=== PATIENT | female | born 1945 | race Caucasian/White ===

== ENCOUNTER 2018-03-07 14:46 | Emergency (ER) | payer MEDICARE ==
[2018-03-07 15:04] LABS: URINE APPEARANCE CLEAR; URINE BILIRUBIN NEGATIVE (NEGATIVE); URINE BLOOD SMALL (NEGATIVE); URINE COLOR YELLOW; URINE GLUCOSE (UA) NEGATIVE (NEGATIVE); URINE KETONE NEGATIVE (NEGATIVE); URINE NITRITE NEGATIVE (NEGATIVE); URINE PROTEIN NEGATIVE (NEGATIVE); URINE UROBILINOGEN 0.2 E.U./dL (0.20 - 1.00)
[2018-03-07 15:09] LABS: URINE LEUKOCYTE ESTERASE TRACE (NEGATIVE); URINE WBC 0 - 2 (0-2/hpf)
--- NOTE | 2018-03-07 15:27 | Emergency Department Record ---
History of Present Illness - General Chief complaint: Female Urogenital Problem Stated complaint: POSS UTI Time Seen by Provider: 03/07/18 15:16 Source: Patient Mode of Arrival: Ambulatory Limitations: No limitations - History of Present Illness Initial comments: The patient is here due to a one day of slight dysuria. The patient denies any AP, nausea, vomiting, back pain or fever. She is presently on an oral Abx for a URI. MD Complaint: Dysuria Onset/Timin -: Days(s) Improves with: None Worsens with: None Associated Symptoms: Dysuria - Related Data Home Medications Medication Instructions Recorded Confirmed Last Taken Clarithromycin 500 mg PO BID 03/07/18 03/07/18 Unknown Lisinopril [Zestril] 5 mg PO DAILY 03/07/18 03/07/18 Unknown Omeprazole [Prilosec] 40 mg PO DAILY 03/07/18 03/07/18 Unknown Allergies Allergy/AdvReac Type Severity Reaction Status Date / Time hydrochlorothiazide AdvReac muscle Unverified 03/25/16 10:51 [facility] Travel Screening - Travel/Exposure Within Last 30 Days Have you traveled within the last 30 days?: No Review of Systems Constitutional: Reports: Malaise. Denies: Chills, Fever Eyes: Denies: Eye discharge ENT: Denies: Congestion Respiratory: Reports: Cough Past Medical History - SOCIAL HISTORY Smoking Status: Never smoker Alcohol Use: None Drug Use: None - RESPIRATORY Hx Respiratory Disorders: Yes Hx Asthma: Yes Hx Pneumonia: Yes (hx) - CARDIOVASCULAR Hx Cardio Disorders: Yes Hx Hypertension: Yes - NEURO Hx Neuro Disorders: No - GI Hx Reflux: Yes - Hx Genitourinary Disorders: No - ENDOCRINE Hx Endocrine Disorders: No - MUSCULOSKELETAL Hx Musculoskeletal Disorders: No - PSYCH Hx Psych Problems: No - HEMATOLOGY/ONCOLOGY Hx Hematology/Oncology Disorders: No Family Medical History Any Significant Family History?: Yes Hx Diabetes: Brother/Sister Hx Stroke: Brother/Sister Physical Exam - General General Appearance: Alert, Oriented x3, Cooperative, No acute distress - Head Head exam: Atraumatic, Normocephalic, Normal inspection - Eye Eye exam: Normal appearance, PERRL, EOMI - Neck Neck exam: Normal inspection, Full ROM. negative: Tenderness - Respiratory Respiratory exam: Normal lung sounds bilaterally. negative: Respiratory distress - Cardiovascular Cardiovascular Exam: Regular rate, Normal rhythm, Normal heart sounds - GI/Abdominal GI/Abdominal exam: Soft, Normal bowel sounds. negative: Rebound, Rigid, Tenderness - Extremities Extremities exam: Normal inspection, Full ROM, Normal capillary refill. negative: Tenderness - Neurological Neurological exam: Alert. negative: Motor sensory deficit Course Vital Signs 03/07/18 14:47 Temperature 98.1 F Pulse Rate 89 Respiratory 20 Rate Blood Pressure 147/91 Pulse Ox 96 - Reevaluation(s) Reevaluation #1: I explained to the patient that the UA does not demonstrate any infection but does have a few RBC's. She is to recheck with her PCP in 3-5 days and repeat the UA. 03/07/18 15:25 Medical Decision Making - Lab Data Lab Results 03/07/18 Range/Units 15:00 Urine Color Yellow Urine Appearance Clear Urine pH 6.0 (5.0-8.0) Ur Specific [place] 1.020 (1.002-1.030) Urine Protein Negative (NEGATIVE) Urine Glucose (UA) Negative (NEGATIVE) Urine Ketones Negative (NEGATIVE) Urine Blood Small H (NEGATIVE) Urine Nitrite Negative (NEGATIVE) Urine Bilirubin Negative (NEGATIVE) Urine Urobilinogen 0.2 (0.20 - 1.00) E.U./dL Ur Leukocyte Esterase Trace H (NEGATIVE) Urine RBC 3 - 6 (NONE SEEN) Urine WBC 0 - 2 (0-2/hpf) Ur Epithelial Cells 10 - 15 (FEW) Disposition Disposition: Discharge Clinical Impression: Dysuria Disposition: Home, Self-Care Condition: (2) Stable Instructions: Dysuria (ED) Additional Instructions: Please drink plenty of fluids and please see your family doctor for recheck next week and repeat the UA. Return to the ER for any worsening symptoms. Forms: Patient Portal Access Time of Disposition: 15:26 Quality - Quality Measures Quality Measures: N/A - Blood Pressure Screening View Details: Yes Does Patient Have Any of the Following: No Blood Pressure Classification: Hypertensive Reading Systolic Measurement: 147 Diastolic Measurement: 91 Screening for High Blood Pressure: < First Hypertensive BP, F/U Documented > [ [id number]] First Hypertensive Follow-up Interventions: Referral to alternative/primary care provider.
== END 2018-03-07 15:34 | disposition home or self-care (01) ==
LOC: ER 14:46
DX: R30.0 Dysuria (principal); I10 Essential (primary) hypertension
CPT/HCPCS: 81001; 99282